=== PATIENT | female | born 2000 | race Caucasian/White ===

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

== ENCOUNTER 2020-07-29 16:25 | Emergency (ER) | payer BC ==
--- NOTE | 2020-07-29 16:41 | PDOC ---
History of Present Illness - General Chief Complaint: Injury Stated Complaint: RIGHT KNEE INJURY SLIPPED AND BANGED INTO A TRUCK - History of Present Illness Initial Comments: Naresh Price is an otherwise healthy 20yo man who presents to the ED with an injury to his right knee. He states that he was climbing off a piece of construction equipment when he slipped, falling approximately 3 feet to the ground. He landed on his right knee. Initially, he did not attempt to stand due to pain in the knee, but he has subsequently been able to walk with a limp. He states that he is not able to bear full weight on the right leg. He is able to move it without difficulty and says that he does not believe his leg is broken as "it would hurt more" in that case. However, given the inability to bear full weight he felt it should be xrayed. Past History - Medical History Allergies/Adverse Reactions: Allergies Allergy/AdvReac Type Severity Reaction Status Date / Time No Known Allergies Allergy Verified 07/29/20 16:27 Home Medications: Ambulatory Orders NK [No Known Home Medication] 02/04/18 COPD: No - Immunization History Immunization Up to Date: Yes - Psycho-Social/Smoking History Smoking History: Never smoked Have you smoked in the past 12 months: No Review of Systems - Review of Systems Comments:: General: No fevers, no chills, no weight or appetite change, no malaise HEENT: No changes in vision, no changes in hearing, no congestion, no sore throat CV: No chest pain, no palpitations, no LE edema Pulm: No SOB, no cough, no wheezing GI: No nausea or vomiting, no change in bowel habits, no melena : No frequency, no urgency, no dysuria Musc: No back pain. See HPI Skin: No rash. Abrasion to Rt knee Endo: No excessive thirst, no heat/cold intolerance Heme: No unusual bruising or bleeding, no swollen glands Neuro: No syncope, no numbness/tingling, no focal weakness Vasc: No claudication Psych: No recent change in mood, no SI or HI *Physical Exam - Physical Exam General: Comfortable, no acute distress HEENT: Atraumatic, PERRL, EOMI, MMM, voice normal Cards: RRR Pulm: Comfortable on room air Ext: TTP diffusely over right knee. No significant erythema, edema, or bruising. Full active ROM. No instability noted on exam. Able to walk with limp favoring RLE. Neurovascularly intact. Skin: Superficial abrasion to rt knee. Neuro: A&Ox3, CN grossly intact, normal speech, motor/sensory grossly intact and symmetric Medical Decision Making - Medical Decision Making 07/29/20 16:35 Naresh Price is an otherwise healthy 20yo man who presents to the ED with right knee pain after slipping and falling onto his knee. - No significant visible injury, minor TTP, ROM intact, able to bear weight with a limp - Most likely contusion but will xray to r/o fracture - Pt declines pain medication - Tetanus within the last 5 years, no need for booster today 07/29/20 17:28 - Xray without fracture appreciated - Knee abrasion cleaned, bacitracin and bandage applied - Discussed home care and return precautions, will d/c home Seen with Dr Liya Powers PGY3 Discharge - Discharge Information Problems reviewed: Yes Clinical Impression/Diagnosis: Right knee pain Qualifiers: Chronicity: acute Qualified Code(s): M25.561 - Pain in right knee Condition: Stable Disposition: HOME - Admission No - Follow up/Referral Referrals: Josh Isbell DO [Staff Physician] - Gen Dao DO [Staff Physician] - - Patient Discharge Instructions Patient Printed Discharge Instructions: DI for Knee Pain Additional Instructions: Discharge Instructions: You were seen in the emergency department for knee pain. Your xray did not show any fracture. Home Care and Follow Up: - You may use over the counter medications as needed for pain at home. 650- 1000mg acetaminophen (Tylenol) or 600mg ibuprofen (Motrin or Advil) can be used every 6-8 hours. If needed for continued pain, these medications may be alternated every 3-4 hours. For example, if you take ibuprofen at 9am, you may take acetaminophen at noon, ibuprofen at 3pm, etc. - It is strongly recommended that you take ibuprofen with food to help prevent stomach irritation. - Try using an ice pack for 20 minutes every hour for additional pain control. This will also reduce swelling. - Allow your knee to rest; try to avoid extensive walking or any activity that causes pain in your knee. You may bear weight on your leg as tolerated. - If your pain does not improve over the next week, you have been referred to orthopedic surgery (Quinten Dao and Sukhi) for follow up. - Seek immediate medical care if you have significant worsening of your symptoms, you have severe swelling, you are unable to walk at all, you cannot bend your knee, you have numbness in your foot, your foot becomes cold, or you have any other medical emergency. - Post Discharge Activity
[2020-07-29 16:54] VITALS: BP 153/75; PULSE 88; TEMP 98.8; BMI 30.7
--- NOTE | 2020-07-29 17:27 | PDOC ---
Attending Attestation - Resident Resident Name: PriyaEstefany - ED Attending Attestation I have performed the following: I have examined & evaluated the patient, The case was reviewed & discussed with the resident, I agree w/resident's findings & plan - HPI HPI: 07/29/20 17:25 20yo man who presents to the ED with an injury to his right knee. He states that he was climbing off a piece of construction equipment when he slipped, falling approximately 3 feet to the ground. He landed on his right knee. Initially, he did not attempt to stand due to pain in the knee, but he has subsequently been able to walk with a limp. He states that he is not able to bear full weight on the right leg. He is able to move it without difficulty and says that he does not believe his leg is broken as "it would hurt more" in that case. However, given the inability to bear full weight he felt it should be xrayed. tdap is up to date. has small abrasion to right anterior knee 07/29/20 17:27 - Physicial Exam PE: 07/29/20 17:25 physical exam General: NAD, well appearing HEENT: NCAT, EOMI, PERRL. airway patent Resp: no distress, speaking full sentences. Vascular: 2+ DP pulses symmetric and equal. Back: no midline tenderness, no stepoffs, FROM MSK: soft compartment. no calf tenderness. 5/5 plantar and dorsiflexion. SILT. no laxity at knee jt. 2+ DP pulses bilaterally. +right anterior knee abrasion, +right anterior knee TTP, no crepitus, FROM with extension and flexion. Neuro: alert, no focal neurologic deficits, limps and gait stable. Skin: color normal color, warm and well perfused. Cap refill <2 sec. 07/29/20 17:26 07/29/20 17:26 - Medical Decision Making 07/29/20 17:25 Vital Signs Temp Pulse Resp BP Pulse Ox 98.8 F 88 18 153/75 100 07/29/20 16:26 07/29/20 16:26 07/29/20 16:26 07/29/20 16:26 07/29/20 16:26 ddx knee /patella fx, dislocation, contusion, sprain. VS reviewed, wnl Xray rt knee with normal joint space alignment, no acute fx or dislocation. no patella fx on sunrise view Discussed results with patient. Rest ice and elevation. Pain control with OTC meds including motrin/tylenol as needed every 6 hours; no narcotics needed. Ortho followup provided. Please return to ED for increased pain, weakness, numbness/tingling, fever, or redness. 07/29/20 17:26 07/29/20 17:27 07/29/20 17:27 Discharge - Discharge Information Problems reviewed: Yes Clinical Impression/Diagnosis: Right knee pain Qualifiers: Chronicity: acute Qualified Code(s): M25.561 - Pain in right knee Condition: Stable Disposition: HOME - Follow up/Referral Referrals: Gen Dao DO [Staff Physician] - Josh Isbell DO [Staff Physician] - - Patient Discharge Instructions Patient Printed Discharge Instructions: DI for Knee Pain Additional Instructions: Discharge Instructions: You were seen in the emergency department for knee pain. Your xray did not show any fracture. Home Care and Follow Up: - You may use over the counter medications as needed for pain at home. 650- 1000mg acetaminophen (Tylenol) or 600mg ibuprofen (Motrin or Advil) can be used every 6-8 hours. If needed for continued pain, these medications may be alternated every 3-4 hours. For example, if you take ibuprofen at 9am, you may take acetaminophen at noon, ibuprofen at 3pm, etc. - It is strongly recommended that you take ibuprofen with food to help prevent stomach irritation. - Try using an ice pack for 20 minutes every hour for additional pain control. This will also reduce swelling. - Allow your knee to rest; try to avoid extensive walking or any activity that causes pain in your knee. You may bear weight on your leg as tolerated. - If your pain does not improve over the next week, you have been referred to orthopedic surgery (Quinten Dao and Sukhi) for follow up. - Seek immediate medical care if you have significant worsening of your symptoms, you have severe swelling, you are unable to walk at all, you cannot bend your knee, you have numbness in your foot, your foot becomes cold, or you have any other medical emergency. - Post Discharge Activity
== END 2020-07-29 17:31 | disposition home or self-care (01) ==
LOC: EDSEX 16:25 → FER 16:25
DX: M25.561 Pain in right knee (principal)
CPT/HCPCS: 73562-TC-RT-FY; 99283-25

== ENCOUNTER 2024-02-23 12:44 | Emergency (ER) | payer BC, OTHER ==
[2024-02-23 13:04] VITALS: BP 144/88; PULSE 83; RESP 18; TEMP 98.9; BMI 33.5
[2024-02-23] MEDS ORDERED: HIV POST EXPOSURE PROPHYLAXIS KIT PO ONE (13:04)
[2024-02-23] MEDS: HIV POST EXPOSURE PROPHYLAXIS KIT PO ONE (13:14)
[2024-02-23 13:17] LABS: HEMATOCRIT 50.6 % (35.4-49); HEMOGLOBIN 16.7 G/dL (11.7-16.9); MCH 28.2 pg (25.7-33.7); MCHC 32.9 g/dl (32.0-35.9); MEAN CELL VOLUME 85.6 fl (80-96); MEAN PLT VOLUME 8.9 fl (7.5-11.1); PLATELET COUNT 196.2 10^3/uL (134-434); RBC 5.91 10^6/uL (4.00-5.60); RDW 14.3 % (11.9-15.9)
[2024-02-23 13:47] LABS: ALBUMIN 4.9 g/dl (3.4-5.0); BILIRUBIN,TOTAL 0.6 mg/dl (0.2-1); CALCIUM 9.8 mg/dl (8.5-10.1); CREATININE 0.9 mg/dl (0.6-1.3); PHOSPHOROUS 3.9 (2.5-4.9); TOT PROT 7.5 g/dl (6.4-8.2)
[2024-02-23 16:10] LABS: HIV INTERPRETATION NEGATIVE (NEGATIVE)
== END 2024-02-23 13:35 | disposition home or self-care (01) ==
LOC: FER 12:44
DX: Z77.21 Contact with and (suspected) exposure to potentially hazardous body fluids (principal)
CPT/HCPCS: 36415; 80053; 82465; 82977; 84100; 85025; 86704; 86803; 87340; 87389; 87517; 99283-25

== ENCOUNTER 2024-05-21 08:58 | Emergency (ER) | payer BC, OTHER ==
[2024-05-21 09:16] VITALS: BP 135/84; PULSE 89; RESP 18; TEMP 98.4; BMI 33.4
[2024-05-21] MEDS ORDERED: diphenhydrAMINE HCL 25 MG CAPSULE (FP) PO ONE (09:33)
[2024-05-21] MEDS: diphenhydrAMINE HCL 50 MG CAPSULE PO ONE (09:34)
[2024-05-21] MEDS ORDERED: predniSONE 10 MG TABLET (UD) ONE (09:46)
[2024-05-21] MEDS ORDERED: predniSONE 20 MG TABLET (UD) ONE (09:46)
[2024-05-21] MEDS: predniSONE 20 MG TABLET (UD) PO SCH (10:00)
== END 2024-05-21 10:08 | disposition home or self-care (01) ==
LOC: FER 08:58
DX: T63.461A Toxic effect of venom of wasps, accidental (unintentional), initial encounter (principal); L29.9 Pruritus, unspecified; M79.89 Other specified soft tissue disorders; H02.843 Edema of right eye, unspecified eyelid
CPT/HCPCS: 99283-25